=== PATIENT | male | born 1985 | race Caucasian/White ===

== ENCOUNTER 2024-07-16 23:36 | Emergency (ER) | payer OTHER, SELFPAY ==
[2024-07-16 23:37] VITALS: BP 158/98; PULSE 76; RESP 18; TEMP 36.8; O2SAT 96; BMI 36.8
[2024-07-16 23:40] VITALS: BP 158/98; PULSE 87; O2SAT 97
--- NOTE | 2024-07-16 23:51 | W.ED.EXTPRO ---
HPI - Extremity Problem General: Chief complaint: Extremity Problem,Nontraumatic Stated complaint: FOOT PAIN Time Seen by Provider: 07/16/24 23:39 Source: patient Mode of arrival: ambulatory Limitations: no limitations History of Present Illness: Patient is a 39-year-old male presenting to the emergency department complaining of gout flare to right foot onset past few days. 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 Reports pain with ambulation, also states he started to have pain in his left foot. Does not report any radiation of pain. Reports swelling, pain, and limited range of motion due to the swelling. No other symptoms reported at this time. MD Complaint: extremity pain (Right foot) and extremity swelling (Right foot) Onset (ago): day(s) Pain Consistency: constant Location: right and lower extremity Radiation: none Exacerbating factors: range of motion and weight bearing Associated symptoms: Deny chest pain, fever(s) or rash Related Data Previous Rx's Medication Instructions Recorded indomethacin 50 mg capsule 50 mg PO TID #30 caps 07/16/24 Allergies Allergy/AdvReac Type Severity Reaction Status Date / Time No Known Allergies Allergy Verified 07/16/24 23:40 Review of Systems General: Reports: 10 or more systems reviewed and unremarkable except in HPI and below Const: Denies: fever(s) or chills Card: Denies: chest pain Resp: Denies: dyspnea or productive cough GI: Denies: abdominal pain, nausea, vomiting or diarrhea : Denies: flank pain Musc: Reports: extremity pain, extremity swelling and limited range of motion; Denies: neck pain, back pain, joint pain, joint swelling, joint redness, joint warmth or muscle weakness Skin/Breast: Denies: rash Neuro: Denies: headache(s), numbness in extremities or weakness in extremities Physical Exam Const: COMMON NORMALS: no acute distress, patient oriented x3, no limitations, healthy appearing, alert and well nourished HENMT: COMMON NORMALS: normocephalic and atraumatic HEAD & SCALP: normocephalic and atraumatic Neck/C-Spine: COMMON NORMALS: full ROM, supple and no meningeal signs Resp: COMMON NORMALS: normal respiratory effort, No use of accessory muscles and clear to auscultation bilaterally AUSCULTATION: clear to auscultation bilaterally Cardio: COMMON NORMALS: regular rate and regular rhythm RATE: regular rate RHYTHM: regular rhythm Extremity: NARRATIVE EXTREMITY EXAM: Right foot diffusely swollen and diffusely tender to palpation. Erythema noted to the dorsal aspect. DP/PT pulses palpable. Pain with passive and active range of motion. Negative knee examination. There is some swelling appreciable to the lateral and medial malleoli. Neuro: COMMON NORMALS: patient oriented x3, moves all extremities, no focal motor deficits and no sensory deficits noted SENSORIUM/ORIENTATION: Yes alert MENINGEAL SIGNS: Yes no meningeal signs Skin: COMMON NORMALS: no rashes or lesions noted GENERAL SKIN EXAM: no rashes or lesions noted Course Vital Signs: Vital signs: Vital Signs Temperature 98.3 F 07/16/24 23:37 Pulse Rate 87 07/16/24 23:40 Respiratory Rate 18 07/16/24 23:37 Blood Pressure 158/98 07/16/24 23:40 Pulse Oximetry 97 07/16/24 23:40 Oxygen Delivery Me thod Room Air 07/16/24 23:40 MDM - Extremity (Nontraumatic) Medical Decision Making Patient presented with acute gout flare to right foot. States this is identical to prior, he is from [place] and sees primary care for this back on. We will treat with steroids, Decadron now and methylprednisolone given for longer action. 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 No radiology studies performed this visit Discharge Plan Discharge Patient Disposition: Home Clinical Impression: Gout Qualifiers: Gout site: foot Gout etiology: unspecified cause Chronicity: chronic Laterality: right Qualified Code(s): M1A.0710 - Idiopathic chronic gout, right ankle and foot, without tophus (tophi) Condition: Stable Prescriptions: New indomethacin 50 mg capsule 50 mg PO TID Qty: 30 0RF Rx Instructions: administer with food or milk Discharge Orders: Discharge ED (Routine); Ordered 07/17/24 Ordered By: Alvarez Lima Discharge Diet: As Directed Discharge Activity: Increase activity as tolerated Patient Instructions: Gout (ED) Activity Restrictions/Additional Instructions: Indomethacin as prescribed. Follow-up with your primary care provider back home. Low purine diet. Coding Level of Care Code ED Clinical Dietitian for Neto Benavides
[2024-07-16] MEDS: methylPREDNISolone (DEPO) 80 MG/ML INJ 1 mL IM (23:56)
[2024-07-16] MEDS: dexamethasone 10 mg/mL INJ IVP (23:56)
[2024-07-17 00:24] VITALS: BP 131/95; PULSE 82; O2SAT 96
== END 2024-07-17 00:29 | disposition home or self-care (01) ==
PROVIDERS: Emergency Provider Physician Assistant
DX: M1A.0710 Idiopathic chronic gout, right ankle and foot, without tophus (tophi) (principal)
CPT/HCPCS: 96372; 96374; 99284; J1010; J1100